=== PATIENT | female | born 1960 | race Caucasian/White ===

== ENCOUNTER → 2017-11-20 | Outpatient (CLI) | payer BC ==
[~2017-11-20] MED LIST: CALCIUM 500 +1 EAC5 PO; CIPROFLOXACIN500 M1 PO; FISH OIL 1,001000 M2; FISH OIL 1,001000 M2 PO; HYDROCHLOROTHIA25 M2 PO; IBUPROFEN 800800 MG PO; LISINOPRIL10 MG; LISINOPRIL20 MG PO; PYRIDIUM100 M1 PO; TUMS; VITAMIN B-12250 MCG
== END ==
LOC: M.RAD 08:58
DX: Z12.31 Encounter for screening mammogram for malignant neoplasm of breast (principal)

== ENCOUNTER → 2017-11-27 | Outpatient (CLI) | payer BC | LOC: M.ULTRA 09:00 | DX: N60.02 Solitary cyst of left breast (principal) ==

== ENCOUNTER → 2018-07-12 | Outpatient (CLI) | payer BC ==
--- NOTE | 2018-07-12 18:07 | 2DMMODE ---
[place] [address] 2 D/M-MODE ECHOCARDIOGRAM Name: ARIELLA MILLSANNE DIONNE Room: [facility]#: [id number] Admission: 07/12/18 Attend Phys: Eleanor VALVERDE Mcneil Discharge: Date of : 64 Date of Service: 07/12/18 1807 Report #: [id number] THIS REPORT FOR: //name// APPROVED REPORT Study performed: 07/12/2018 10:21:41 EXAM: Comprehensive 2D, Doppler, and color-flow Echocardiogram Patient Location: Out-Patient Status: routine BSA: 1.63 HR: 81 bpm BP: 118/78 mmHg Other Information Study Quality: Good Indications Mitral Valve Prolapse 2D Dimensions IVSd: 11.74 (7-11mm) LVOT Diam: 20.02 (18-24mm) LVDd: 37.58 mm PWd: 8.96 (7-11mm) Ascending Ao: 24.57 (22-36mm) LVDs: 22.08 (25-40mm) Aortic Root: 23.72 mm Volumes Left Atrial Volume (Systole) LA ESV Index: 14.30 mL/m2 Aortic Valve AoV Peak Rafy.: 1.16 m/s AO Peak Gr.: 5.39 mmHg LVOT Max P.73 mmHg AO Mean Gr.: 2.63 mmHg LVOT Mean P.51 mmHg LVOT Max V: 0.83 m/s AO V2 VTI: 21.65 cm LVOT Mean V: 0.58 m/s LETI (VTI): 2.43 cm2 LVOT V1 VTI: 16.74 cm Mitral Valve E/A Ratio: 0.86 MV Decel. Time: 200.98 ms MV E Max Rafy.: 0.58 m/s MV PHT: 58.28 [place] [address] 2 D/M-MODE ECHOCARDIOGRAM Name: ARIELLA MILLSANNE DIONNE Room: [facility]#: [id number] Admission: 07/12/18 Attend Phys: Eleanor VALVERDE Mcneil Discharge: Date of : 64 Date of Service: 07/12/18 1807 Report #: [id number] MVA (PHT): 3.77 cm2 TDI E/Lateral E': 5.80 E/Medial E': 5.80 Medial E' Rafy.: 0.10 m/s Lateral E' Rafy.: 0.10 m/s Pulmonary Valve PV Peak Rafy.: 0.94 m/s PV Peak Gr.: 3.50 mmHg Tricuspid Valve RAP Estimate: 5.00 mmHg TR Peak Gr.: 17.54 mmHg RVSP: 22.54 mmHg PA Pressure: 22.54 mmHg Left Ventricle The left ventricle is normal size. There is normal LV segmental wall motion. There is normal left ventricular wall thickness. Left ventricular systolic function is normal. LVEF is 55-60%. Grade I - abnormal relaxation pattern. Right Ventricle The right ventricle is normal size. The right ventricular systolic function is normal. Atria The left atrium size is normal. The right atrium size is normal. Aortic Valve The aortic valve is normal in structure. No aortic regurgitation is present. There is no aortic valvular stenosis. Mitral Valve The mitral valve is normal in structure. Mild mitral regurgitation. No evidence of mitral valve stenosis. Tricuspid Valve The tricuspid valve is normal in structure. Mild tricuspid regurgitation. No pulmonary hypertension. Pulmonic Valve The pulmonary valve is normal in structure. Mild pulmonic regurgitation[place] [address] 2 D/M-MODE ECHOCARDIOGRAM Name: ARIELLA MILLSANNE DIONNE Room: [facility]#: [id number] Admission: 07/12/18 Attend Phys: Eleanor VALVERDE Mcneil Discharge: Date of : 64 Date of Service: 07/12/18 1807 Report #: [id number] The aortic root is normal in size. IVC is normal in size and collapses >50% with inspiration. Pericardium There is no pericardial effusion. <Conclusion> The left ventricle is normal size. There is normal left ventricular wall thickness. Left ventricular systolic function is normal. LVEF is 55-60%. Grade I - abnormal relaxation pattern. Mild mitral regurgitation. Mild tricuspid regurgitation. No pulmonary hypertension. IVC is normal in size and collapses >50% with inspiration. <ELECTRONICALLY SIGNED> By: Cricket Walsh MD, FACC 07/12/181806 06 06 Cricket Walsh MD, FACC /INF
== END ==
LOC: M.CRD 09:51
DX: I08.1 Rheumatic disorders of both mitral and tricuspid valves (principal)

== ENCOUNTER → 2018-11-22 | Outpatient (CLI) | payer BC | LOC: M.RAD 09:19 | DX: Z12.31 Encounter for screening mammogram for malignant neoplasm of breast (principal) ==

== ENCOUNTER → 2018-11-24 | Outpatient (CLI) | payer BC | LOC: M.RAD 08:56 | DX: N63.21 Unspecified lump in the left breast, upper outer quadrant (principal) ==

== ENCOUNTER → 2019-12-08 | Outpatient (CLI) | payer BC | LOC: M.RAD 08:30 | PROVIDERS: ATTEND Registered Nurse Diabetes Educator | DX: Z12.31 Encounter for screening mammogram for malignant neoplasm of breast (principal) ==

== ENCOUNTER → 2020-12-31 | Outpatient (CLI) | payer BC | LOC: M.RAD 09:40 | PROVIDERS: ATTEND Registered Nurse Diabetes Educator | DX: Z12.31 Encounter for screening mammogram for malignant neoplasm of breast (principal); N64.89 Other specified disorders of breast ==